=== PATIENT | female | born 1975 | race Caucasian/White ===

== ENCOUNTER 2023-09-20 19:28 | Inpatient (IN) ==
[2023-09-20] MEDS ORDERED: IOPAMIDOL 100 ML BOTTLE IV ONE (19:29)
[2023-09-20] MEDS: IPRATROPIUM/ALBUTEROL 3 ML AMPUL.NEB NEB ONE (20:24)
[2023-09-20 20:40] LABS: Basophils # (Auto) 0.04 K/mcL (0.00-0.30); Basophils % (Auto) 0.5 % (0.0-2.0); Eosinophils # (Auto) 0.18 K/mcL (0.00-0.70); Eosinophils % (Auto) 2.1 % (0.0-7.0); Hemoglobin 13.5 g/dL (11.2-15.7); Lymphocytes # (Auto) 1.38 K/mcL (1.50-4.80); Lymphocytes % (Auto) 15.9 % (15.5-49.0); Mean Cell Volume 79.6 fL (80.0-100.0); Mean Corpuscular HGB Conc 32.9 g/dL (31.0-36.0); Mean Platelet Volume 10.2 fL (8.8-12.5); Monocytes # (Auto) 0.77 K/mcL (0.10-0.90); Monocytes % (Auto) 8.9 % (1.0-12.0); Platelet Count 373 K/mcL (140-440); RBC 5.15 M/mcL (3.59-5.38); Red Cell Distribution Width 11.5 % (11.5-14.5); WBC 8.7 K/mcL (4.5-11.0)
[2023-09-20 20:53] LABS: proBNP 79.4 pg/mL (<125.0)
[2023-09-20 21:04] LABS: Blood Urea Nitrogen 13 mg/dL (6-20); Calcium 9.3 mg/dL (8.6-10.4); Carbon Dioxide 29 mmol/L (22-30); Chloride 90 mmol/L (96-108); Glomerular Filtration Rate 86; Glucose 180 mg/dL (70-105); Potassium 2.8 mmol/L (3.3-5.1); Sodium 134 mmol/L (133-145)
[2023-09-20] MEDS: MAGNESIUM SULFATE 1 GM/100 ML BAG IV ONE (22:00)
[2023-09-20] MEDS: POTASSIUM CHLORIDE 20 MEQ/10 ML VIAL IV ONE (22:01)
[2023-09-20] MEDS: POTASSIUM CHLORIDE 20 MEQ TABLET PO ONE (22:01)
[2023-09-20] MEDS: MAGNESIUM SULFATE 8.12 MEQ/2 ML VIAL ONE (22:01)
[2023-09-21 00:18] LABS: Albumin 3.6 gm/dL (3.2-5.2); Bilirubin,Direct 0.4 mg/dL (<0.3); Bilirubin,Total 0.9 mg/dL (0.1-1.0); Globulin 3.4 gm/dL (2.2-3.7)
[2023-09-21] MEDS: POTASSIUM CHLORIDE 20 MEQ in DEXTROSE 5% IN WATER 250 ML IV ONE (00:26)
[2023-09-21] MEDS ORDERED: HEPARIN SOD,PORK IN 0.45% NACL 25,000 UNIT in PREMIX 1 BAG IV SCH (00:45)
[2023-09-21] MEDS: HEPARIN 5,000 UNIT/ML VIAL IV ONE ×2 (01:15→01:51)
[2023-09-21] MEDS: HEPARIN SOD,PORK IN 0.45% NACL 25,000 UNIT in PREMIX 1 BAG IV SCH (01:18)
[2023-09-21 02:01] LABS: INR 1.1 (0.9-1.1); Partial Thromboplastin Time 37.7 sec (20.0-37.0); Prothrombin Time 15.1 sec (11.9-14.5)
[2023-09-21] MEDS: 0.9 % SODIUM CHLORIDE 10 ML SYRINGE IV SCH ×2 (05:48→14:47)
[2023-09-21] MEDS ORDERED: morphine 4 MG/ML VIAL IV PRN (07:27)
[2023-09-21] MEDS ORDERED: traZODone HCL 50 MG TABLET PO PRN (07:27)
[2023-09-21] MEDS ORDERED: DEXTROSE 31 GM ORAL.SUSP PO PRN (07:27)
[2023-09-21] MEDS ORDERED: ONDANSETRON 4 MG/2 ML VIAL IV PRN (07:27)
[2023-09-21] MEDS ORDERED: IPRATROPIUM/ALBUTEROL 3 ML AMPUL.NEB NEB PRN (07:27)
[2023-09-21] MEDS ORDERED: DEXTROSE 50% 50 ML VIAL IV PRN (07:27)
[2023-09-21] MEDS ORDERED: oxyCODONE IR 5 MG TABLET PO PRN (07:27)
[2023-09-21] MEDS ORDERED: guaiFENesin/DEXTROMETHORPHAN 5ML UD CUP PO PRN (07:40)
[2023-09-21] MEDS: INSULIN LISPRO 1 UNIT/0.01 ML UNIT SQ SCH (10:47)
[2023-09-21] MEDS: DOCUSATE SODIUM 100 MG CAPSULE PO SCH ×2 (10:48→10:53)
[2023-09-21] MEDS: POTASSIUM CHLORIDE 20 MEQ TABLET PO SCH (10:52)
[2023-09-21] MEDS: TRIAMTERENE/HYDROCHLOROTHIAZID 1 CAP CAPSULE PO SCH (11:21)
[2023-09-21] MEDS: HEPARIN 5,000 UNIT/ML VIAL ONE (20:42)
[2023-09-21] MEDS: HEPARIN 5,000 UNIT/ML VIAL IV SCH (20:43)
[2023-09-21 20:55] LABS: Blood Urea Nitrogen 9 mg/dL (6-20); Carbon Dioxide 20 mmol/L (22-30); Chloride 107 mmol/L (96-108); Glomerular Filtration Rate 121; Glucose 135 mg/dL (70-105); Potassium 2.1 mmol/L (3.3-5.1); Sodium 136 mmol/L (133-145)
[2023-09-21] MEDS: ACETAMINOPHEN 325 MG TABLET PO PRN (20:56)
[2023-09-21 20:57] LABS: Basophils # (Auto) 0.03 K/mcL (0.00-0.30); Basophils % (Auto) 0.6 % (0.0-2.0); Eosinophils # (Auto) 0.13 K/mcL (0.00-0.70); Eosinophils % (Auto) 2.4 % (0.0-7.0); Hematocrit 31.1 % (34.1-44.9); Hemoglobin 9.4 g/dL (11.2-15.7); Lymphocytes # (Auto) 1.21 K/mcL (1.50-4.80); Lymphocytes % (Auto) 22.4 % (15.5-49.0); Mean Cell Volume 88.6 fL (80.0-100.0); Mean Corpuscular HGB Conc 30.2 g/dL (31.0-36.0); Mean Platelet Volume 10.6 fL (8.8-12.5); Monocytes # (Auto) 0.51 K/mcL (0.10-0.90); Monocytes % (Auto) 9.4 % (1.0-12.0); Neutrophils % (Auto) 64.8 % (38.0-78.0); Platelet Count 237 K/mcL (140-440); RBC 3.51 M/mcL (3.59-5.38); WBC 5.4 K/mcL (4.5-11.0)
[2023-09-21] MEDS ORDERED: SENNOSIDES 1 TABLET PO SCH (21:00)
[2023-09-21] MEDS: INSULIN GLARGINE, HUMAN 1 UNIT/0.01 ML SQ SCH (21:07)
[2023-09-21] MEDS: SENNOSIDES 1 TABLET PO SCH (21:08)
[2023-09-21] MEDS: HEPARIN SOD,PORK IN 0.45% NACL 500 ML IV ONE (21:53)
[2023-09-22 06:27] LABS: Basophils # (Auto) 0.07 K/mcL (0.00-0.30); Basophils % (Auto) 0.9 % (0.0-2.0); Eosinophils # (Auto) 0.42 K/mcL (0.00-0.70); Eosinophils % (Auto) 5.2 % (0.0-7.0); Hematocrit 40.3 % (34.1-44.9); Hemoglobin 12.8 g/dL (11.2-15.7); Lymphocytes # (Auto) 2.06 K/mcL (1.50-4.80); Lymphocytes % (Auto) 25.7 % (15.5-49.0); Mean Cell Volume 81.9 fL (80.0-100.0); Mean Corpuscular HGB Conc 31.8 g/dL (31.0-36.0); Mean Platelet Volume 11.3 fL (8.8-12.5); Monocytes # (Auto) 0.88 K/mcL (0.10-0.90); Platelet Count 364 K/mcL (140-440); RBC 4.92 M/mcL (3.59-5.38); Red Cell Distribution Width 11.7 % (11.5-14.5)
[2023-09-22 06:38] LABS: ALT/SGPT 9 U/L (<40); AST/SGOT 29 U/L (<32); Albumin 3.3 gm/dL (3.2-5.2); Albumin/Globulin Ratio 1.1 (1.0-2.3); Alkaline Phosphatase 85 U/L (39-117); Bilirubin,Direct 0.4 mg/dL (<0.3); Bilirubin,Total 0.8 mg/dL (0.1-1.0); Blood Urea Nitrogen 10 mg/dL (6-20); Calcium 9.3 mg/dL (8.6-10.4); Carbon Dioxide 30 mmol/L (22-30); Chloride 90 mmol/L (96-108); Globulin 3.1 gm/dL (2.2-3.7); Glomerular Filtration Rate 101; Glucose 155 mg/dL (70-105); Lactate Dehydrogenase 254 U/L (135-225); Phosphorous 3.3 mg/dL (2.5-4.5); Potassium 3.2 mmol/L (3.3-5.1); Sodium 134 mmol/L (133-145); Triglycerides 140 mg/dL (<150)
[2023-09-22 09:21] LABS: Hemoglobin A1C 7.9 % Hgb (4.0-6.0)
[2023-09-22] MEDS: POTASSIUM CHLORIDE 20 MEQ TABLET PO SCH (12:03)
[2023-09-22] MEDS: HEPARIN SOD,PORK IN 0.45% NACL 500 ML IV ONE (18:05)
[2023-09-23] MEDS: HEPARIN SOD,PORK IN 0.45% NACL 500 ML IV ONE (04:18)
[2023-09-23 06:27] LABS: ALT/SGPT 16 U/L (<40); AST/SGOT 32 U/L (<32); Albumin 3.1 gm/dL (3.2-5.2); Alkaline Phosphatase 90 U/L (39-117); Bilirubin,Direct 0.5 mg/dL (<0.3); Bilirubin,Total 0.9 mg/dL (0.1-1.0); Blood Urea Nitrogen 10 mg/dL (6-20); Calcium 9.2 mg/dL (8.6-10.4); Carbon Dioxide 30 mmol/L (22-30); Chloride 93 mmol/L (96-108); Globulin 3.1 gm/dL (2.2-3.7); Glomerular Filtration Rate 101; Glucose 169 mg/dL (70-105); Lactate Dehydrogenase 241 U/L (135-225); Potassium 3.4 mmol/L (3.3-5.1); Sodium 134 mmol/L (133-145); Triglycerides 118 mg/dL (<150); Uric Acid 7.4 mg/dL (2.5-8.0)
[2023-09-23] MEDS: ONDANSETRON 4 MG/2 ML VIAL IV PRN (13:42)
[2023-09-23] MEDS: APIXABAN 5 MG TABLET PO SCH (15:22)
[2023-09-23 15:40] LABS: LDH,Peritoneal Fluid 411 U/L
[2023-09-23 15:43] LABS: Total Protein,Peritoneal Fluid 4.7 gm/dL
[2023-09-23 15:53] VITALS: O2SAT 93
[2023-09-23 16:39] LABS: Eosinophils,Peritoneal Fluid 1 %; Mesothelial,Peritoneal Fluid 4 %; Monocyte,Peritoneal Fluid 51 %; Neutrophils,Peritoneal Fluid 25 %; Nucleated Cel,Peritoneal Fluid 1349 /cumm; RBC,Peritoneal Fluid <50,000 /cumm
[2023-09-23 18:01] VITALS: TEMP 99
== END 2023-09-23 17:50 | disposition home or self-care (01) | DRG 175 ==
LOC: ED 19:28 → MEDSUR 09-21 03:50
PROVIDERS: ADMIT Internal Medicine; ATTEND Internal Medicine

== ENCOUNTER 2024-03-03 15:18 | Inpatient (IN) ==
[2024-03-03 16:34] LABS: Basophils # (Auto) 0.04 K/mcL (0.00-0.30); Basophils % (Auto) 0.4 % (0.0-2.0); Eosinophils # (Auto) 0.03 K/mcL (0.00-0.70); Eosinophils % (Auto) 0.3 % (0.0-7.0); Hematocrit 42.9 % (34.1-44.9); Hemoglobin 12.8 g/dL (11.2-15.7); Lymphocytes # (Auto) 0.72 K/mcL (1.50-4.80); Lymphocytes % (Auto) 6.8 % (15.5-49.0); Mean Cell Volume 84.1 fL (80.0-100.0); Mean Corpuscular HGB Conc 29.8 g/dL (31.0-36.0); Mean Platelet Volume 9.4 fL (8.8-12.5); Monocytes # (Auto) 0.55 K/mcL (0.10-0.90); Monocytes % (Auto) 5.2 % (1.0-12.0); Neutrophils % (Auto) 86.9 % (38.0-78.0); Platelet Count 474 K/mcL (140-440); Red Cell Distribution Width 18.2 % (11.5-14.5); WBC 10.6 K/mcL (4.5-11.0)
[2024-03-03 16:54] LABS: ALT/SGPT 11 U/L (<40); AST/SGOT 21 U/L (<32); Albumin 3.1 gm/dL (3.2-5.2); Albumin/Globulin Ratio 0.8 (1.0-2.3); Alkaline Phosphatase 117 U/L (39-117); Bilirubin,Total 0.5 mg/dL (0.1-1.0); Blood Urea Nitrogen 20 mg/dL (6-20); Carbon Dioxide 28 mmol/L (22-30); Chloride 87 mmol/L (96-108); Globulin 3.9 gm/dL (2.2-3.7); Glomerular Filtration Rate 58; Glucose 224 mg/dL (70-105); Potassium 3.9 mmol/L (3.3-5.1); Sodium 130 mmol/L (133-145)
[2024-03-03] MEDS ORDERED: DEXTROSE 50% 50 ML VIAL IV PRN (20:19)
[2024-03-03] MEDS ORDERED: MAGNESIUM SULFATE 2 GM/50 ML BAG IV PRN (20:19)
[2024-03-03] MEDS ORDERED: IPRATROPIUM/ALBUTEROL 3 ML AMPUL.NEB NEB PRN (20:19)
[2024-03-03] MEDS ORDERED: POTASSIUM CHLORIDE 40 MEQ in DEXTROSE 5% IN WATER 500 ML IV PRN (20:19)
[2024-03-03] MEDS ORDERED: DEXTROSE 31 GM ORAL.SUSP PO PRN (20:19)
[2024-03-03] MEDS ORDERED: POTASSIUM CHLORIDE 20 MEQ TABLET PO PRN ×2 (20:19)
[2024-03-03] MEDS ORDERED: SENNOSIDES 1 TABLET PO PRN (20:19)
[2024-03-03] MEDS: fentaNYL 25 MCG PATCH TOPICAL ONE (20:32)
[2024-03-03] MEDS: fentaNYL 100 MCG/2 ML VIAL IV PRN (21:39)
[2024-03-03] MEDS: 0.9 % SODIUM CHLORIDE 10 ML SYRINGE IV SCH (21:41)
[2024-03-03] MEDS: INSULIN LISPRO 1 UNIT/0.01 ML UNIT SQ SCH (21:42)
[2024-03-03] MEDS: ENOXAPARIN 100 MG/ML SYRINGE SQ SCH (21:43)
[2024-03-03] MEDS: DOCUSATE SODIUM 100 MG CAPSULE PO SCH (21:43)
[2024-03-03] MEDS: FUROSEMIDE 40 MG/4 ML VIAL IV ONE (21:48)
[2024-03-03] MEDS: ceFAZolin 1 GM VIAL IV SCH (21:48)
[2024-03-04 06:04] LABS: Basophils # (Auto) 0.04 K/mcL (0.00-0.30); Basophils % (Auto) 0.5 % (0.0-2.0); Eosinophils # (Auto) 0.16 K/mcL (0.00-0.70); Eosinophils % (Auto) 2.2 % (0.0-7.0); Hemoglobin 11.7 g/dL (11.2-15.7); Lymphocytes # (Auto) 1.13 K/mcL (1.50-4.80); Lymphocytes % (Auto) 15.3 % (15.5-49.0); Mean Cell Volume 85.3 fL (80.0-100.0); Mean Platelet Volume 9.5 fL (8.8-12.5); Monocytes # (Auto) 0.72 K/mcL (0.10-0.90); Monocytes % (Auto) 9.7 % (1.0-12.0); Platelet Count 420 K/mcL (140-440); RBC 4.57 M/mcL (3.59-5.38); Red Cell Distribution Width 18.3 % (11.5-14.5); WBC 7.4 K/mcL (4.5-11.0)
[2024-03-04 06:33] LABS: ALT/SGPT 7 U/L (<40); AST/SGOT 18 U/L (<32); Albumin 2.8 gm/dL (3.2-5.2); Albumin/Globulin Ratio 0.8 (1.0-2.3); Alkaline Phosphatase 102 U/L (39-117); Bilirubin,Direct 0.2 mg/dL (<0.3); Bilirubin,Total 0.4 mg/dL (0.1-1.0); Blood Urea Nitrogen 22 mg/dL (6-20); Calcium 9.9 mg/dL (8.6-10.4); Carbon Dioxide 29 mmol/L (22-30); Chloride 87 mmol/L (96-108); Globulin 3.7 gm/dL (2.2-3.7); Glomerular Filtration Rate 52; Glucose 171 mg/dL (70-105); Lactate Dehydrogenase 209 U/L (135-225); Phosphorous 5.4 mg/dL (2.5-4.5); Sodium 130 mmol/L (133-145); Triglycerides 129 mg/dL (<150); Uric Acid 8.2 mg/dL (2.5-8.0)
[2024-03-04] MEDS: HYDROcodone/APAP 5/325MG TABLET PO PRN (08:41)
[2024-03-04] MEDS: 0.9 % SODIUM CHLORIDE 1,000 ML IV ONE (08:41)
[2024-03-04] MEDS: ENOXAPARIN 40 MG/0.4 ML SYRINGE SQ ONE (15:42)
[2024-03-04] MEDS: ENOXAPARIN 100 MG/ML SYRINGE SQ SCH (21:31)
[2024-03-05 06:18] LABS: ALT/SGPT < 5 U/L (<40); AST/SGOT 22 U/L (<32); Albumin 2.7 gm/dL (3.2-5.2); Albumin/Globulin Ratio 0.7 (1.0-2.3); Alkaline Phosphatase 102 U/L (39-117); Bilirubin,Direct < 0.2 mg/dL (0-0.3); Bilirubin,Total 0.3 mg/dL (0.1-1.0); Blood Urea Nitrogen 26 mg/dL (6-20); Calcium 9.9 mg/dL (8.6-10.4); Carbon Dioxide 29 mmol/L (22-30); Chloride 88 mmol/L (96-108); Globulin 3.7 gm/dL (2.2-3.7); Glomerular Filtration Rate 52; Glucose 179 mg/dL (70-105); Lactate Dehydrogenase 235 U/L (135-225); Phosphorous 4.3 mg/dL (2.5-4.5); Sodium 129 mmol/L (133-145); Triglycerides 127 mg/dL (<150); Uric Acid 7.9 mg/dL (2.5-8.0)
[2024-03-05 08:47] LABS: Thyroid Stimulating Hormone 3.1 uIU/mL (0.27-5.01)
[2024-03-05] MEDS ORDERED: 0.9 % SODIUM CHLORIDE 10 ML SYRINGE IV PRN (08:57)
[2024-03-05] MEDS: ENOXAPARIN 120 MG/0.8 ML SYRINGE SQ SCH (09:28)
[2024-03-05] MEDS: ONDANSETRON 4 MG/2 ML VIAL IV PRN (11:16)
[2024-03-05 12:12] LABS: Sodium, Urine Random < 20 mmol/L
[2024-03-05 12:15] LABS: Osmolality,Urine 768 mOSM/kg (80-1000)
[2024-03-05] MEDS: 0.9 % SODIUM CHLORIDE 1,000 ML IV ONE (13:19)
[2024-03-06] MEDS ORDERED: IOPAMIDOL 100 ML BOTTLE IV ONE (08:26)
[2024-03-06 09:28] LABS: ALT/SGPT < 5 U/L (<40); AST/SGOT 19 U/L (<32); Albumin 2.5 gm/dL (3.2-5.2); Albumin/Globulin Ratio 0.7 (1.0-2.3); Alkaline Phosphatase 103 U/L (39-117); Bilirubin,Direct < 0.2 mg/dL (0-0.3); Bilirubin,Total 0.3 mg/dL (0.1-1.0); Blood Urea Nitrogen 29 mg/dL (6-20); Calcium 9.6 mg/dL (8.6-10.4); Carbon Dioxide 27 mmol/L (22-30); Chloride 88 mmol/L (96-108); Globulin 3.8 gm/dL (2.2-3.7); Glomerular Filtration Rate 74; Glucose 185 mg/dL (70-105); Lactate Dehydrogenase 203 U/L (135-225); Phosphorous 3.3 mg/dL (2.5-4.5); Potassium 3.6 mmol/L (3.3-5.1); Sodium 126 mmol/L (133-145); Triglycerides 135 mg/dL (<150); Uric Acid 7.4 mg/dL (2.5-8.0)
[2024-03-06] MEDS: ALBUMIN HUMAN 25 GM/100 ML BAG IV SCH (17:00)
[2024-03-06 20:02] LABS: Triglycerides,Body Fluid 1355 mg/dl
[2024-03-06 21:24] LABS: Monocyte,Peritoneal Fluid 57 %; Neutrophils,Peritoneal Fluid 1 %; Nucleated Cel,Peritoneal Fluid 149 /cumm; RBC,Peritoneal Fluid <50,000 /cumm
[2024-03-07 06:36] LABS: Blood Urea Nitrogen 25 mg/dL (6-20); Calcium 9.5 mg/dL (8.6-10.4); Carbon Dioxide 29 mmol/L (22-30); Chloride 92 mmol/L (96-108); Glomerular Filtration Rate 100; Glucose 171 mg/dL (70-105); Potassium 3.4 mmol/L (3.3-5.1); Sodium 132 mmol/L (133-145)
[2024-03-08 12:55] LABS: Basophils # (Auto) 0.07 K/mcL (0.00-0.30); Basophils % (Auto) 0.7 % (0.0-2.0); Eosinophils # (Auto) 0.05 K/mcL (0.00-0.70); Eosinophils % (Auto) 0.5 % (0.0-7.0); Hematocrit 38.9 % (34.1-44.9); Hemoglobin 11.8 g/dL (11.2-15.7); Lymphocytes # (Auto) 1.19 K/mcL (1.50-4.80); Lymphocytes % (Auto) 11.3 % (15.5-49.0); Mean Cell Volume 82.8 fL (80.0-100.0); Mean Corpuscular HGB Conc 30.3 g/dL (31.0-36.0); Mean Platelet Volume 9.3 fL (8.8-12.5); Monocytes # (Auto) 0.84 K/mcL (0.10-0.90); Monocytes % (Auto) 7.9 % (1.0-12.0); Neutrophils % (Auto) 79.3 % (38.0-78.0); Platelet Count 446 K/mcL (140-440); Red Cell Distribution Width 17.9 % (11.5-14.5); WBC 10.6 K/mcL (4.5-11.0)
[2024-03-08 13:09] LABS: Blood Urea Nitrogen 23 mg/dL (6-20); Calcium 9.6 mg/dL (8.6-10.4); Carbon Dioxide 29 mmol/L (22-30); Chloride 88 mmol/L (96-108); Glomerular Filtration Rate 85; Glucose 217 mg/dL (70-105); Potassium 3.5 mmol/L (3.3-5.1); Sodium 128 mmol/L (133-145)
[2024-03-08] MEDS: POLYETHYLENE GLYCOL 3350 17 GM PACKET PO PRN (13:22)
[2024-03-08] MEDS: FUROSEMIDE 40 MG/4 ML VIAL IV SCH (16:44)
[2024-03-08] MEDS: METOCLOPRAMIDE 10 MG/2 ML VIAL IV PRN (17:15)
[2024-03-09 07:33] LABS: Blood Urea Nitrogen 26 mg/dL (6-20); Calcium 9.6 mg/dL (8.6-10.4); Carbon Dioxide 28 mmol/L (22-30); Chloride 88 mmol/L (96-108); Glomerular Filtration Rate 85; Glucose 176 mg/dL (70-105); Potassium 3.6 mmol/L (3.3-5.1); Sodium 128 mmol/L (133-145)
[2024-03-09] MEDS: FUROSEMIDE 40 MG/4 ML VIAL IV SCH (09:50)
[2024-03-09] MEDS: POTASSIUM CHLORIDE 20 MEQ TABLET PO ONE (09:51)
[2024-03-10 06:09] LABS: Blood Urea Nitrogen 28 mg/dL (6-20); Calcium 9.5 mg/dL (8.6-10.4); Carbon Dioxide 30 mmol/L (22-30); Chloride 87 mmol/L (96-108); Glomerular Filtration Rate 100; Glucose 156 mg/dL (70-105); Potassium 3.7 mmol/L (3.3-5.1); Sodium 128 mmol/L (133-145)
== END 2024-03-10 13:50 | disposition home or self-care (01) | DRG 199 ==
LOC: ED 15:18 → ICU 20:10 → MEDSUR 03-05 18:27
PROVIDERS: ADMIT Internal Medicine; ATTEND Internal Medicine